=== PATIENT | female | born 1960 | race Two or more races ===

== ENCOUNTER 2019-03-08 22:48 | Inpatient (IN) | payer OTHER ==
[~2019-03-08] VITALS: Ht 170.2 cm; Wt 78.7 kg
[2019-03-09 01:13] VITALS: BP 150/81
[2019-03-09] MEDS ORDERED: ACETAMINOPHEN 325 MG TABLET PO PRN (01:30)
[2019-03-09] MEDS ORDERED: MAG HYDROX/AL HYDROX/SIMETH 30 ML UDC PO PRN (01:30)
[2019-03-09 01:50] VITALS: BP 150/81
--- NOTE | 2019-03-09 01:50 | NUR ---
MEDICAL STAFF SPECIALIST NOTES ADMITTED PATIENT DIRECT ADMIT FROM [place], ACCOMPANIED BY 2 PARAMEDICS AND PATIENT'S DAUGHTER AND SON, ORIENTED UNIT AND THE USE OF CALL LIGHT, INITIAL ASSESSMENT DONE, INFORMED LABORER HIDE HOUSE MINAL SHANKAR FOR ADMITTING ORDERS, SKIN IS INTACT, IV ACCESS ON HER LEFT AC G#22 INTACT AND PATENT, INITIAL STROKE ASSESSMENT / NIHSS, DONE, ALL NEEDS ATTENDED, PATIENT PLACED ON TELE MONITOR READS AT SINUS RHYTHM 80s. REPOSITIONED FOR COMFORT. WILL MONITOR ACCORDINGLY.
[2019-03-09] MEDS ORDERED: HYDROCODONE/APAP 5/325MG 1 EACH TABLET PO PRN (02:00)
[2019-03-09] MEDS ORDERED: TEMAZEPAM 15 MG CAPSULE PO PRN (02:00)
[2019-03-09 02:06] LABS: BASOPHILS % (AUTO) 0.2 % (0.0-2.0); HEMATOCRIT 27 % (33-45); HEMOGLOBIN 8.8 g/dL (11.5-14.8); LYMPHOCYTES # (AUTO) 1.2 /CMM (0.8-4.8); LYMPHOCYTES % (AUTO) 21.3 % (20.0-44.0); MEAN CORPUSCULAR HGB CONC 33 g/dl (31.0-36.0); MEAN CORPUSCULAR VOLUME 75 fL (82-100); MONOCYTES # (AUTO) 0.4 /CMM (0.1-1.30); NEUTROPHILS # (AUTO) 4.1 /CMM (1.8-8.9); NEUTROPHILS % (AUTO) 70.5 % (43.0-81.0); PLATELET COUNT (AUTO) 334 /CMM (150-450); RED BLOOD CELL COUNT(AUTO) 3.53 MIL/uL (4.0-5.2); WHITE BLOOD COUNT (AUTO) 5.9 K/uL (4.3-11.0)
[2019-03-09] MEDS ORDERED: CLOP75TA15 PO (02:11)
[2019-03-09] MEDS ORDERED: AMLO10TA4 PO (02:11)
[2019-03-09] MEDS ORDERED: FOLI1TAB16 PO (02:11)
[2019-03-09] MEDS ORDERED: ATOR20TA PO (02:11)
[2019-03-09] MEDS ORDERED: OMEP20TA20 PO (02:11)
[2019-03-09] MEDS ORDERED: BACL10TA PO (02:11)
[2019-03-09] MEDS ORDERED: METO25TA6 PO (02:11)
[2019-03-09] MEDS ORDERED: MIRT30TA PO (02:11)
[2019-03-09] MEDS ORDERED: LISI-603 PO (02:11)
[2019-03-09 02:16] LABS: CALCIUM, SERUM 8.9 mg/dL (8.5-10.1); CREATININE 0.9 mg/dL (0.6-1.3); POTASSIUM 3.3 mmol/L (3.5-5.1)
[2019-03-09 02:30] LABS: ALBUMIN 3.2 g/dL (3.4-5.0); BILIRUBIN,TOTAL 0.4 mg/dL (0.2-1.0); TOTAL PROTEIN, SERUM 6.6 g/dL (6.4-8.2)
[2019-03-09 02:32] LABS: THYROID STIMULATING HORMONE 1.408 uIU/mL (0.358-3.74)
[2019-03-09 04:00] VITALS: BP 151/83
[2019-03-09] MEDS ORDERED: BLOOD SUGAR DIAGNOSTIC 1 EACH STRIP IN SCH (06:00)
[2019-03-09] MEDS: BLOOD SUGAR DIAGNOSTIC 1 EACH STRIP IN SCH ×4 (07:48→21:44)
[2019-03-09 08:00] VITALS: BP 146/76
--- NOTE | 2019-03-09 08:00 | NUR ---
COMPUTER ENGINEERING TECHNOLOGIST OPENING NOTES Received Patient awake and resting in bed. A/O x 3. VS stable with no acute distress. Breathing even and unlabored on room air with no respiratory distress. Denies pain. Telemonitor in place and operational reading SR with HR-87. 22g PIV on LAC clean, dry, intact and flushing well. Safety precautions in place. Bed locked and set to lowest position with side rails x 2 up. All needs rendered at this time. Will continue to monitor.
[2019-03-09] MEDS: DOCUSATE SODIUM 100 MG CAPSULE PO SCH (08:30)
[2019-03-09] MEDS: PANTOPRAZOLE 40 MG TABLET.DR PO SCH (08:30)
[2019-03-09] MEDS: ASPIRIN EC 325 MG TABLET.DR PO SCH (08:30)
--- NOTE | 2019-03-09 09:58 | NUR ---
MS RN NOTES Per Corie GALVAN, resume home medication, Plavix 75mg QD, increase Lipitor to 40mg, order Echo, and "do not give BP meds, unless SBP>170". Noted orders and carried out. Patient in stable condition. Will continue to monitor.
[2019-03-09] MEDS ORDERED: POTASSIUM CHLORIDE 20 MEQ TAB.PRT.SR PO SCH (10:00)
--- NOTE | 2019-03-09 12:15 | NUR ---
Social service consult requested by Dr. Cortes for stroke. Pt. is a 58 year old female who was transferred to [facility] from [facility] for CVA. RAFAEL met with pt. bedside. Pt. is alert and oriented x 3. Pt. appeared confused at times. Pt. kept referring her son Angel as her nephew. Pt. appeared anxious and stated that her family hasn't called. RAFAEL called pt's on Angel and had pt. speak to her son. Pt. was very appreciative that she was able to speak with her son and stated, " I can relax now." Pt. states she has a history of stroke. Pt. has some short term memory loss at this time. Pt. denies any depression but does state she gets anxious easily since a lot of things have changed medically within the last year. RAFAEL provided active listening and emotional support to the pt. No other social service needs are requested at this time. RAFAEL informed pt. she is available, if needed.
[2019-03-09 16:00] VITALS: BP 144/81
--- NOTE | 2019-03-09 19:09 | NUR ---
HAIR SPINNER CLOSING NOTES Patient awake and resting in bed. A/O x 3. VS stable with no acute distress. Breathing even and unlabored on room air with no respiratory distress. Denies pain. 22g PIV on LAC clean, dry, intact and flushing well. Safety precautions in place. Bed locked and set to lowest position with side rails x 2 up. Call light within reach. All needs rendered at this time. Daughter at bedside. Will endorse plan of care to oncoming shift.
--- NOTE | 2019-03-09 19:30 | NUR ---
MS/RN OPENING NOTES PT RECEIVED AWAKE, DAUGHTER AT BEDSIDE. A/OX2. ON ROOM AIR, BREATHING EVEN AND UNLABORED. DENIES SOB AND PAIN AT THIS TIME. IV TO LAC PATENT AND INTACT. URINE COLLECTED AND SENT TO LAB. BED IN LOW/LOCKED POSITION WITH CALL LIGHT IN REACH. HOB ELEVATED. SIDE RAILS UPX3. WILL CONTINUE TO MONITOR CLOSELY
[2019-03-09 20:00] VITALS: BP 144/77
[2019-03-09] MEDS ORDERED: CLOPIDOGREL BISULFATE 75 MG TABLET PO ONE (21:30)
[2019-03-09] MEDS: ATORVASTATIN 40 MG TABLET PO SCH (21:41)
[2019-03-09] MEDS: CEFTRIAXONE 1 G in IV D5W 50 ML IV SCH (21:46)
[2019-03-09] MEDS ORDERED: SIMVASTATIN 20 MG TABLET PO SCH ×2 (22:00)
[2019-03-09 22:54] LABS: APPEARANCE,URINE CLEAR (CLEAR); BILIRUBIN,URINE NEGATIVE (NEGATIVE); BLOOD, URINE NEGATIVE Ery/uL (NEGATIVE); COLOR,URINE YELLOW (YELLOW); KETONES,URINE NEGATIVE (NEGATIVE); LEUKOCYTE ESTERASE ,URINE NEGATIVE (NEGATIVE); NITRITE, URINE NEGATIVE (NEGATIVE); PROTEIN,URINE NEGATIVE (NEGATIVE); UGLUCOSE NEGATIVE (NEGATIVE); UROBILINOGEN,URINE 0.2 EU/dL (0.2)
[2019-03-10] MEDS: BLOOD SUGAR DIAGNOSTIC 1 EACH STRIP IN SCH ×4 (06:37→22:05)
[2019-03-10 06:38] LABS: BASOPHILS % (AUTO) 0.3 % (0.0-2.0); EOSINOPHILS % (AUTO) 1.6 % (0.0-6.0); HEMATOCRIT 26 % (33-45); HEMOGLOBIN 8.7 g/dL (11.5-14.8); LYMPHOCYTES # (AUTO) 1.3 /CMM (0.8-4.8); LYMPHOCYTES % (AUTO) 30.8 % (20.0-44.0); MEAN CORPUSCULAR HGB CONC 33 g/dl (31.0-36.0); MEAN CORPUSCULAR VOLUME 75 fL (82-100); MONOCYTES # (AUTO) 0.4 /CMM (0.1-1.30); MONOCYTES % (AUTO) 8.5 % (2.0-12.0); NEUTROPHILS # (AUTO) 2.5 /CMM (1.8-8.9); NEUTROPHILS % (AUTO) 58.8 % (43.0-81.0); PLATELET COUNT (AUTO) 336 /CMM (150-450); RED BLOOD CELL COUNT(AUTO) 3.49 MIL/uL (4.0-5.2); WHITE BLOOD COUNT (AUTO) 4.3 K/uL (4.3-11.0)
[2019-03-10 06:59] LABS: CALCIUM, SERUM 9.4 mg/dL (8.5-10.1); CREATININE 0.8 mg/dL (0.6-1.3); POTASSIUM 3.5 mmol/L (3.5-5.1)
--- NOTE | 2019-03-10 07:29 | NUR ---
MS/RN CLOSING NOTES PT ASLEEP, RESPONSIVE TO NAME. A/OX2. FORGETFUL AT TIMES. ON ROOM AIR, BREATHING EVEN AND UNLABORED. DENIES SOB AND PAIN AT THIS TIME. IV TO LAC PATENT AND INTACT. NO FACIAL DROOP, SLURRED SPEECH. BLE AND LUE WITH 5/5 STRENGTH. RUE RESIDUAL WEAKNESS. PERRLA. NO SIGNIFICANT CHANGES OVERNIGHT. ALL NEEDS MET AND ANTICIPATED. BED REMAINS IN LOW/LOCKED POSITION WITH CALL LIGHT IN REACH. HOB SEMI FOWLERS. SIDE RAILS UPX3. BED ALARM ON FOR SAFETY. ASPIRATION PRECAUTIONS IMPLEMENTED. ENDORSED TO DAY SHIFT RN JESICA.
[2019-03-10 08:00] VITALS: BP 123/77
--- NOTE | 2019-03-10 08:45 | NUR ---
m/s collar closer lockstitch: md visit [facility] at [facility].
--- NOTE | 2019-03-10 09:00 | NUR ---
m/s associate doctor: notes daughter called and wants to talk to the doctor. olga ([facility]) made aware and will talk after the meeting as stated. daughter made aware and will come to visit later today.
[2019-03-10] MEDS: DOCUSATE SODIUM 100 MG CAPSULE PO SCH (09:07)
[2019-03-10] MEDS: ASPIRIN EC 325 MG TABLET.DR PO SCH (09:07)
[2019-03-10] MEDS: CLOPIDOGREL BISULFATE 75 MG TABLET PO SCH (09:07)
[2019-03-10] MEDS: PANTOPRAZOLE 40 MG TABLET.DR PO SCH (09:07)
--- NOTE | 2019-03-10 11:54 | NUR ---
m/s quantitative developer: notes son here and informed him that i receive an order for cta brain and son verbalized understanding. consent signed by son. pt made aware. radiology dept made aware.
--- NOTE | 2019-03-10 13:43 | NUR ---
m/s barrel header: notes olga ([facility]np) here and made aware re: polst with order to put status for dnr/dni. order read back and carried out with another nurse as a witness. family remains at bedside and olga will talk to them for update as stated.
[2019-03-10] MEDS ORDERED: CT SWABBABLE VALVE TRANS SET 1 EA INFUS.SET MC ONE (14:34)
[2019-03-10] MEDS ORDERED: IOHEXOL-350 100 ML VIAL IV ONE (14:34)
[2019-03-10] MEDS ORDERED: IV NS 0.9% 250 ML IV ONE (14:34)
--- NOTE | 2019-03-10 15:00 | NUR ---
m/s voice teacher: md visit olga (ancp) at bedside and updated plan of care.
[2019-03-10 16:00] VITALS: BP 148/85
[2019-03-10] MEDS: METOPROLOL TARTRATE 25 MG TABLET PO SCH (17:00)
[2019-03-10] MEDS: BACLOFEN (10 MG) 10 MG TABLET PO SCH (17:18)
--- NOTE | 2019-03-10 17:53 | NUR ---
M/S HARVEST WORKER FIELD CROP: NEURO F/U CTA BRAIN RESULTED AND HANDED TO PIERCE (ELBA). PIERCE AT BEDSIDE UPDATING PT AND FAMILY RE: CTA RESULTS AND PLAN OF CARE.
--- NOTE | 2019-03-10 19:00 | NUR ---
m/s hvac engineering technician: notes resting comfortable in bed. no distress noted. needs attended. family remains at bedside. will continue to monitor.
--- NOTE | 2019-03-10 19:15 | NUR ---
m/s short filler bunch machine operator: notes bedside report given to alexandro (rn) for continuity of care.
--- NOTE | 2019-03-10 19:18 | NUR ---
MS/RN NOTES RECEIVED PT. LYING IN BED. PT. IS AWAKE, ALERT AND ORIENTED X2-3. BREATHING EVEN AND UNLABORED ON 2LPM O2 VIA NC. NO SOB, RESPIRATORY DISTRESS OR COMPLAINTS OF PAIN NOTED AT THIS TIME. PT. WITH LEFT AC 18 GAUGE IV SALINE LOCK PRESENT, PATENT AND INTACT. PT. WITH FAMILY MEMBERS PRESENT AT BEDSIDE. SAFETY AND ASPIRATION PRECAUTIONS IMPLEMENTED AND IN PLACE. BED LOCKED AND IN LOWEST POSITION, SIDE RAILS UP X3, BED ALARM ON, CALL LIGHT WITHIN REACH, WILL CONTINUE TO MONITOR.
[2019-03-10 20:34] VITALS: BP 146/83
[2019-03-10] MEDS: CEFTRIAXONE 1 G in IV D5W 50 ML IV SCH (21:51)
[2019-03-10] MEDS: ATORVASTATIN 40 MG TABLET PO SCH (21:51)
[2019-03-10] MEDS: MIRTAZAPINE 15 MG TABLET PO SCH (21:51)
[2019-03-11 06:25] LABS: BASOPHILS % (AUTO) 0.3 % (0.0-2.0); HEMATOCRIT 27 % (33-45); LYMPHOCYTES # (AUTO) 1.2 /CMM (0.8-4.8); LYMPHOCYTES % (AUTO) 30.5 % (20.0-44.0); MEAN CORPUSCULAR HGB CONC 33 g/dl (31.0-36.0); MEAN CORPUSCULAR VOLUME 75 fL (82-100); MONOCYTES # (AUTO) 0.4 /CMM (0.1-1.30); MONOCYTES % (AUTO) 10.8 % (2.0-12.0); NEUTROPHILS # (AUTO) 2.1 /CMM (1.8-8.9); NEUTROPHILS % (AUTO) 56.4 % (43.0-81.0); PLATELET COUNT (AUTO) 331 /CMM (150-450); RED BLOOD CELL COUNT(AUTO) 3.65 MIL/uL (4.0-5.2); WHITE BLOOD COUNT (AUTO) 3.8 K/uL (4.3-11.0)
[2019-03-11] MEDS: BLOOD SUGAR DIAGNOSTIC 1 EACH STRIP IN SCH ×4 (06:55→22:51)
--- NOTE | 2019-03-11 07:10 | NUR ---
MS/RN NOTES PT. IS LYING IN BED RESTING. BREATHING EVEN AND UNLABORED ON 2LPM O2 VIA NC. NO SOB, RESPIRATORY DISTRESS OR COMPLAINTS OF PAIN NOTED AT THIS TIME AND THROUGHOUT SHIFT. PT. WITH LEFT AC 18 GAUGE IV SALINE LOCK PRESENT, PATENT AND INTACT. ALL PT. NEEDS MET. PT ENCOURAGED AND ASSISTED TO TURN AND REPOSITION Q2H AND NEEDED. SAFETY AND ASPIRATION PRECAUTIONS IMPLEMENTED AND IN PLACE. BED LOCKED AND IN LOWEST POSITION, SIDE RAILS UP X3, BED ALARM ON, CALL LIGHT WITHIN REACH, WILL ENDORSE TO DAYSHIFT NURSE FOR CONTINUITY OF CARE.
[2019-03-11 07:11] LABS: CALCIUM, SERUM 9.4 mg/dL (8.5-10.1); CREATININE 0.9 mg/dL (0.6-1.3); MAGNESIUM 1.8 mg/dL (1.8-2.4); PHOSPHORUS 4.4 mg/dL (2.5-4.9); POTASSIUM 3.6 mmol/L (3.5-5.1)
[2019-03-11 08:00] VITALS: BP 143/83
[2019-03-11] MEDS: AMLODIPINE BESYLATE 10 MG TABLET PO SCH (08:25)
[2019-03-11] MEDS: CLOPIDOGREL BISULFATE 75 MG TABLET PO SCH (08:25)
[2019-03-11] MEDS: PANTOPRAZOLE 40 MG TABLET.DR PO SCH (08:25)
[2019-03-11] MEDS: BACLOFEN (10 MG) 10 MG TABLET PO SCH ×3 (08:25→17:12)
[2019-03-11] MEDS: ASPIRIN EC 325 MG TABLET.DR PO SCH (08:26)
[2019-03-11] MEDS: FOLIC ACID 1 MG TABLET PO SCH (08:26)
[2019-03-11] MEDS: LISINOPRIL (20MG) 20 MG TABLET PO SCH (08:26)
[2019-03-11] MEDS: DOCUSATE SODIUM 100 MG CAPSULE PO SCH (08:26)
[2019-03-11] MEDS: METOPROLOL TARTRATE 25 MG TABLET PO SCH ×2 (08:27→17:00)
[2019-03-11 16:00] VITALS: BP 134/74
--- NOTE | 2019-03-11 18:30 | NUR ---
PATIENT ASLEEP AT THE MOMENT, A/OX2, FORGETFUL. ON ROOM AIR, BREATHING EVEN AND UNLABORED. DENIES SOB AND PAIN AT THIS TIME. IV TO LAC PATENT AND INTACT. NO FACIAL DROOP, SPEECH NORMAL.RIGHT SIDED WEAKNESS. NO CHANGES OVER THE SHIFT . ALL NEEDS MET AND ANTICIPATED. BED REMAINS IN LOW/LOCKED POSITION , CALL LIGHT IN REACH. SIDE RAILS UPX3. BED ALARM ON FOR SAFETY. ASPIRATION PRECAUTIONS IMPLEMENTED.WILL ENDORSE TO NEXT SHIFT.
--- NOTE | 2019-03-11 19:25 | NUR ---
MS/RN NOTES RECEIVED PT. LYING IN BED. PT. IS AWAKE, ALERT AND ORIENTED X2. BREATHING EVEN AND UNLABORED ON 2LPM O2 VIA NC. NO SOB, RESPIRATORY DISTRESS OR COMPLAINTS OF PAIN NOTED AT THIS TIME. PT. WITH LEFT AC 18 GAUGE IV SALINE LOCK PRESENT, PATENT AND INTACT. SAFETY AND ASPIRATION PRECAUTIONS IMPLEMENTED AND IN PLACE. BED LOCKED AND IN LOWEST POSITION, SIDE RAILS UP X3, BED ALARM ON, CALL LIGHT WITHIN REACH, WILL CONTINUE TO MONITOR.
[2019-03-11 20:52] VITALS: BP 135/77
[2019-03-11] MEDS: ATORVASTATIN 40 MG TABLET PO SCH (22:32)
[2019-03-11] MEDS: MIRTAZAPINE 15 MG TABLET PO SCH (22:32)
[2019-03-12] MEDS: BLOOD SUGAR DIAGNOSTIC 1 EACH STRIP IN SCH ×4 (06:43→21:34)
--- NOTE | 2019-03-12 06:52 | NUR ---
MS/RN NOTES PT. IS LYING IN BED RESTING. BREATHING EVEN AND UNLABORED ON ROOM AIR. NO SOB, RESPIRATORY DISTRESS OR COMPLAINTS OF PAIN NOTED AT THIS TIME. PT. WITH LEFT AC 18 GAUGE IV SALINE LOCK PRESENT, PATENT AND INTACT. SAFETY AND ASPIRATION PRECAUTIONS IMPLEMENTED AND IN PLACE. ALL PT. NEEDS MET. PT. ENCOURAGED AND ASSISTED TO TURN AND REPOSITION Q2H AND NEEDED. BED LOCKED AND IN LOWEST POSITION, SIDE RAILS UP X3, BED ALARM ON, CALL LIGHT WITHIN REACH, WILL ENDORSE TO DAYSHIFT NURSE FOR CONTINUITY OF CARE.
[2019-03-12 08:00] VITALS: BP 136/82
[2019-03-12] MEDS: LISINOPRIL (20MG) 20 MG TABLET PO SCH (08:47)
[2019-03-12] MEDS: DOCUSATE SODIUM 100 MG CAPSULE PO SCH (08:47)
[2019-03-12] MEDS: ASPIRIN EC 325 MG TABLET.DR PO SCH (08:47)
[2019-03-12] MEDS: CLOPIDOGREL BISULFATE 75 MG TABLET PO SCH (08:47)
[2019-03-12] MEDS: BACLOFEN (10 MG) 10 MG TABLET PO SCH ×3 (08:48→17:23)
[2019-03-12] MEDS: AMLODIPINE BESYLATE 10 MG TABLET PO SCH (08:48)
[2019-03-12] MEDS: METOPROLOL TARTRATE 25 MG TABLET PO SCH ×2 (08:48→17:23)
[2019-03-12] MEDS: FOLIC ACID 1 MG TABLET PO SCH (08:51)
[2019-03-12] MEDS: PANTOPRAZOLE 40 MG TABLET.DR PO SCH (09:15)
[2019-03-12] MEDS ORDERED: ATOR40TA PO (14:53)
[2019-03-12] MEDS ORDERED: ASPI-869 PO (14:53)
[2019-03-12 16:00] VITALS: BP 147/82
[2019-03-12] MEDS ORDERED: MAGNESIUM HYDROXIDE 30 ML UDC PO PRN (17:30)
--- NOTE | 2019-03-12 18:37 | NUR ---
patient A/O x 2 , able to make needs known, cooperative. NO s/s acute distress noted. Speech is normal, no swallow problems. All needs attended. Patient is able to walk to bathroom with assistance. IV line intact, flushing well. Patient will be d/c to rehab tomorrow. Awaiting for acceptance. Safety precautions observed and call light within reach. Will endorse to next shift for JESICA.
--- NOTE | 2019-03-12 19:10 | NUR ---
RN PM OPENING NOTE BEDSIDE REPORT RECIEVED FROM REYNA MALLOY. patient A/O x 2 REVIEWED POC. QUESTIONS CONCERNS ADDRESSED. NO s/s acute distress noted. Speech is normalPatient is able to walk to bathroom with assistance. IV line intact, HEPLOCKED, flushES well. PLAN FOR Patient TO BE d/c to rehab tomorrow BUT IS AWAITING PLACEMENT/Awaiting for acceptance. Safety precautions observed BED ALARM ACTIVE, call light within reach. WILL CONT TO MONITOR.
[2019-03-12 20:00] VITALS: BP 156/84
[2019-03-12] MEDS: MIRTAZAPINE 15 MG TABLET PO SCH (21:34)
[2019-03-12] MEDS: ATORVASTATIN 40 MG TABLET PO SCH (21:34)
[2019-03-13] MEDS: PANTOPRAZOLE 40 MG TABLET.DR PO SCH (06:39)
[2019-03-13] MEDS: BLOOD SUGAR DIAGNOSTIC 1 EACH STRIP IN SCH ×2 (06:40→12:15)
[2019-03-13 08:00] VITALS: BP 128/63
--- NOTE | 2019-03-13 08:00 | NUR ---
m/s otr flatbed driver: initial assessment received pt in bed awake, a/ox3 with forgetfulness. no c/o pain or any discomfort. still with right upper ext weakness. pt can ambulate with a 4 point cane. instructed to call for assistance. will continue to monitor.
[2019-03-13] MEDS: AMLODIPINE BESYLATE 10 MG TABLET PO SCH (08:36)
[2019-03-13 08:37] VITALS: BP 137/75
[2019-03-13] MEDS: LISINOPRIL (20MG) 20 MG TABLET PO SCH (08:37)
[2019-03-13] MEDS: METOPROLOL TARTRATE 25 MG TABLET PO SCH (08:37)
--- NOTE | 2019-03-13 08:50 | NUR ---
m/s index clerk: md visit seen and examined by olga sheldon ([facility]) at this time. pt for d'c today.
[2019-03-13] MEDS: DOCUSATE SODIUM 100 MG CAPSULE PO SCH (08:53)
[2019-03-13] MEDS: ASPIRIN EC 325 MG TABLET.DR PO SCH (08:53)
[2019-03-13] MEDS: CLOPIDOGREL BISULFATE 75 MG TABLET PO SCH (08:53)
[2019-03-13] MEDS: FOLIC ACID 1 MG TABLET PO SCH (08:53)
[2019-03-13] MEDS: BACLOFEN (10 MG) 10 MG TABLET PO SCH ×2 (08:53→12:16)
--- NOTE | 2019-03-13 09:57 | NUR ---
m/s plastic dolls mold filler: neuro f/u dr. guy here and clarify his miscellaneous order not to give b/p meds if sbp<170 and informed me to cancel that order and she can resume her b/p meds. order read back and carried out and acknowledged.
--- NOTE | 2019-03-13 11:00 | NUR ---
m/s judicial administrative assistant: notes pt ambulate with p.t. using 4 point cane, lesly. well. per cn pt to go [facility] this afternoon.
--- NOTE | 2019-03-13 13:40 | NUR ---
m/s procedure manager: notes gricel (daughter) notified, spoke to her over the phone and informed her re: d'c today to [facility], stated, "yes, they called by brother and he knows, he is on his way there."
--- NOTE | 2019-03-13 15:30 | NUR ---
m/s tree marker: notes son here and discharge instructions given and verbalized understanding. ambulance here early to diamond picker pt. cn aware.
--- NOTE | 2019-03-13 15:45 | NUR ---
m/s cnc technician: notes report given to talon (rn) at [facility] for continuity of care. h/l removed with tip intact.
--- NOTE | 2019-03-13 16:00 | NUR ---
m/s terminal makeup operator: discharged discharged to [facility] via ambulance accompanied by 2 crew in stable condition with all d'c papers.
== END 2019-03-13 16:00 | DRG 45 ==
LOC: TELE 03-09 01:07 → MED 03-09 10:02
PROVIDERS: ADMIT Hospitalist; ATTEND Hospitalist
DX: I63.9 Cerebral infarction, unspecified (principal); I69.351 Hemiplegia and hemiparesis following cerebral infarction affecting right dominant side; D50.9 Iron deficiency anemia, unspecified; E11.9 Type 2 diabetes mellitus without complications; E78.5 Hyperlipidemia, unspecified; E04.1 Nontoxic single thyroid nodule; I10 Essential (primary) hypertension; N95.9 Unspecified menopausal and perimenopausal disorder; N39.0 Urinary tract infection, site not specified; Z90.710 Acquired absence of both cervix and uterus; Z87.891 Personal history of nicotine dependence; Z83.3 Family history of diabetes mellitus
CPT/HCPCS: 36415; 70496-TC; 80048-TC; 80053-TC; 80061-TC; 80305; 81000-TC; 82962-TC; 83735-TC; 83880; 84100-TC; 84443-TC; 85025-TC; 85652-TC; 85730-TC; 87081-TC; 92526; 92611-TC; 93307-TC; 93880-TC; 97110-TC; 97112-TC; 97116-TC; 97530-TC; G0378; J0696; J7050; J7060; Q9967